=== PATIENT | male | born 2000 | race American Indian/Alaskan Native ===

== ENCOUNTER 2020-06-15 10:32 | Emergency (ER) | payer SELFPAY ==
[2020-06-15 10:49] VITALS: BP 145/92
--- NOTE | 2020-06-15 11:11 | Emergency Department Report ---
ED ENT HPI - General Chief complaint: Earache Stated complaint: RT EAR INFECTION Time Seen by Provider: 06/15/20 11:05 Source: patient Mode of arrival: Ambulatory Limitations: No Limitations - History of Present Illness Initial comments: 19-year-old morbid obese -[place] male presents to the emergency room for right ear pain and decreased hearing for 2 to 3 days. Patient states he has been using ear curettes to clean his ears. Patient denies any fever chills no nausea no vomiting. MD complaint: ear pain Onset/Timin -: days(s) Location: R ear Severity scale (0 -10): 5 Quality: aching, other (throbby) Consistency: intermittent Improves with: none Associated Symptoms: hearing loss (Decreased). denies: fever, cough, gum swelling, toothache, pain with swallowing, sore throat, tinnitus, discharge from ear, rhinorrhea - Related Data Previous Rx's Medication Instructions Recorded Last Taken Type Carbamide Peroxide [Ear Wax 4 drop OT TID PRN #15 ml 06/15/20 Unknown Rx Removal] Allergies Allergy/AdvReac Type Severity Reaction Status Date / Time No Known Allergies Allergy Unverified 06/15/20 10:44 ED Dental HPI - General Chief complaint: Earache Stated complaint: RT EAR INFECTION Time Seen by Provider: 06/15/20 11:05 Source: patient Mode of arrival: Ambulatory Limitations: No Limitations - Related Data Previous Rx's Medication Instructions Recorded Last Taken Type Carbamide Peroxide [Ear Wax 4 drop OT TID PRN #15 ml 06/15/20 Unknown Rx Removal] Allergies Allergy/AdvReac Type Severity Reaction Status Date / Time No Known Allergies Allergy Unverified 06/15/20 10:44 ED Review of Systems ROS: Stated complaint: RT EAR INFECTION Other details as noted in HPI Comment: All other systems reviewed and negative ED Past Medical Hx - Past Medical History Previous Medical History?: No - Surgical History Past Surgical History?: No - Medications Home Medications: Home Medications Medication Instructions Recorded Confirmed Last Taken Type Carbamide Peroxide [Ear Wax 4 drop OT TID PRN #15 ml 06/15/20 Unknown Rx Removal] ED Physical Exam - General Limitations: No Limitations General appearance: alert, in no apparent distress - Head Head exam: Present: atraumatic, normocephalic - Eye Eye exam: Present: normal appearance - Expanded ENT Exam Expanded TM/Canal exam: Cerumen Impaction: Right TM, Left TM - Neck Neck exam: Present: normal inspection, full ROM - Respiratory Respiratory exam: Absent: accessory muscle use - Neurological Exam Neurological exam: Present: alert, oriented X3, normal gait - Psychiatric Psychiatric exam: Present: normal affect, normal mood - Skin Skin exam: Present: warm, dry, intact, normal color. Absent: rash ED Course Vital Signs 06/15/20 10:48 Temperature 98.3 F Pulse Rate 76 Respiratory 18 Rate Blood Pressure 145/92 O2 Sat by Pulse 93 Oximetry ED Medical Decision Making - Medical Decision Making 19-year-old morbid obese -[place] male presents to the emergency room for right ear pain and decreased hearing for 2 to 3 days. Patient states he has been using ear curettes to clean his ears. Patient denies any fever chills no nausea no vomiting. Recommend to follow-up with the bearing inspector for cerumen impaction bilateral. Critical care attestation.: If time is entered above; I have spent that time in minutes in the direct care of this critically ill patient, excluding procedure time. ED Disposition Clinical Impression: Right ear impacted cerumen Disposition: DC- TO HOME OR SELFCARE Is pt being admited?: No Does the pt Need Aspirin: No Condition: Stable Instructions: Earwax Buildup, Adult, Ear Drops, Adult, [id number] Additional Instructions: Both ears have cerumen impaction. Tylenol or ibuprofen as needed for pain management. You need to follow-up at the ear nose and throat provider. I have listed 1 below for your convenience. Tylenol or ibuprofen as needed for pain management. Prescriptions: Carbamide Peroxide [Ear Wax Removal] 4 drop OT TID PRN #15 ml PRN Reason: cerumen impaction Referrals: ANGELIQUE BRYANT MD [Staff Physician] - 3-5 Days Forms: Work/School Release Form(ED)
== END 2020-06-15 11:38 | disposition home or self-care (01) ==
LOC: ED 10:32
DX: H61.21 Impacted cerumen, right ear (principal); Z79.899 Other long term (current) drug therapy
CPT/HCPCS: 99281